=== PATIENT | female | born 2000 | race African-American/Black ===

== ENCOUNTER 2020-02-29 14:39 | Emergency (ER) | payer MEDICAID ==
[~2020-02-29] VITALS: Ht 165.1 cm; Wt 55.0 kg
[2020-02-29 14:42] VITALS: BP 117/56
[2020-02-29] MEDS ORDERED: IBUPROFEN 600MG TABLET PO ONE (16:45)
[2020-02-29] MEDS ORDERED: SODIUM CHLORIDE 0.9% 1,000 ML IV ONE (17:10)
[2020-02-29 17:42] LABS: CHLORIDE 105 mEq/L (98-107)
[2020-02-29 17:47] LABS: PARTIAL THROMBOPLASTIN TIME 29.3 sec (23.4-31.0)
[2020-02-29 17:48] LABS: CLARITY URINE CLEAR (CLEAR); COLOR URINE YELLOW (YELLOW); KETONES URINE NEGATIVE (NEGATIVE); LEUKOCYTE ESTERASE URINE NEGATIVE (NEGATIVE); NITRITE URINE NEGATIVE (NEGATIVE); OCCULT BLOOD URINE NEGATIVE (NEGATIVE); PH URINE 7.5 (4.5-8.0); PROTEIN URINE NEGATIVE (NEGATIVE); SPECIFIC GRAVITY URINE 1.016 (1.005-1.030); UROBILINOGEN URINE 0.2 E.U./dL (0.2-1.0)
[2020-02-29 17:49] LABS: HCG SCREEN NEGATIVE
== END 2020-02-29 19:59 | disposition home or self-care (01) ==
LOC: ER 14:39
DX: S22.018A Other fracture of first thoracic vertebra, initial encounter for closed fracture (principal); V49.19XA Passenger injured in collision with other motor vehicles in nontraffic accident, initial encounter; Y93.89 Activity, other specified; Y92.89 Other specified places as the place of occurrence of the external cause
CPT/HCPCS: 36415; 71045; 72040; 72125; 72128; 72131; 80053; 81003; 81025; 84703; 85610; 85730; 99285; J7030

== ENCOUNTER 2020-06-06 14:36 | Emergency (ER) | payer MEDICAID ==
[~2020-06-06] VITALS: Ht 154.9 cm; Wt 58.0 kg
[2020-06-06] MEDS ORDERED: AMOXICILLIN/POTASSIUM CLAVULANATE 875/125MG TAB PO ONE (15:30)
[2020-06-06] MEDS ORDERED: TETANUS, DIPHTHERIA, PERTUSSIS VAC/PF 0.5ML (>7YR OLD) IM ONE (16:00)
[2020-06-06 16:16] VITALS: BP 110/78
== END 2020-06-06 16:16 | disposition home or self-care (01) ==
LOC: ER 14:53
DX: S61.251A Open bite of left index finger without damage to nail, initial encounter (principal); W55.01XA Bitten by cat, initial encounter; Y93.89 Activity, other specified; Y92.480 Sidewalk as the place of occurrence of the external cause; Z23 Encounter for immunization
CPT/HCPCS: 73140; 90471; 90715; 99283

== ENCOUNTER 2021-01-13 20:25 | Emergency (ER) | payer MEDICAID ==
[~2021-01-13] VITALS: Ht 154.9 cm; Wt 50.0 kg
[2021-01-13] MEDS ORDERED: ONDANSETRON HCL 4MG/2ML INJ IV STA (21:59)
[2021-01-13] MEDS ORDERED: PANTOPRAZOLE SODIUM 40 MG/VIAL IV STA (21:59)
[2021-01-13] MEDS ORDERED: SODIUM CHLORIDE 0.9% 1,000 ML IV ONE (22:00)
[2021-01-13 22:53] LABS: BASOPHILS % 0.2 % (0.0-2.0); EOSINOPHILS % 0.1 % (0.0-5.0); HEMATOCRIT. 32.9 % (36.0-48.0); HEMOGLOBIN. 10.6 g/dL (12.0-16.0); LYMPHOCYTES % 14.1 % (20.0-50.0); MEAN CORPUSCULAR VOLUME 80.4 fL (81.0-99.0); MEAN PLATELET VOLUME 8.3 fl (7.4-10.4); MONOCYTES % 4.1 % (2.0-8.0); NEUTROPHILS % 81.5 % (40.0-76.0); PLATELET 246 x1000/uL (130-400); RED BLOOD CELL COUNT 4.09 mill/uL (4.2-5.4); RED CELL DISTRIBUTION WIDTH 13.8 % (11.6-14.6)
[2021-01-13 23:00] LABS: CHLORIDE 105 mEq/L (98-107)
[2021-01-13 23:11] LABS: CLARITY URINE CLOUDY (CLEAR); COLOR URINE YELLOW (YELLOW); KETONES URINE 4+ (NEGATIVE); LEUKOCYTE ESTERASE URINE 1+ (NEGATIVE); NITRITE URINE POSITIVE (NEGATIVE); OCCULT BLOOD URINE TRACE (NEGATIVE); PROTEIN URINE 1+ (NEGATIVE); SPECIFIC GRAVITY URINE 1.027 (1.005-1.030)
[2021-01-13 23:24] LABS: B-HCG QUANTITATIVE 160844 mIU/mL (<3)
[2021-01-13 23:25] LABS: *AMPHETAMINES SCREEN URINE NEGATIVE (NEGATIVE); *BARBITURATES SCREEN URINE NEGATIVE (NEGATIVE); *BENZODIAZEPINES SCREEN URINE NEGATIVE (NEGATIVE)
[2021-01-13 23:26] LABS: METHADONE URINE SCREEN NEGATIVE (NEGATIVE); OPIATES URINE SCREEN NEGATIVE (NEGATIVE); PHENCYCLIDINE URINE SCREEN NEGATIVE (NEGATIVE)
[2021-01-13 23:27] LABS: *COCAINE SCREEN URINE NEGATIVE (NEGATIVE)
[2021-01-14 00:04] LABS: CANNABINOID URINE SCREEN PRESUMTIVE POSITIVE (NEGATIVE)
[2021-01-14] MEDS ORDERED: ACETAMINOPHEN 325MG TABLET PO ONE (00:15)
[2021-01-14] MEDS ORDERED: SODIUM CHLORIDE 0.9% 1,000 ML IV ONE (00:30)
[2021-01-14] MEDS ORDERED: ONDA4TAB5 MT (01:37)
[2021-01-14 01:52] VITALS: BP 109/58
== END 2021-01-14 02:05 | disposition home or self-care (01) ==
LOC: ER 20:25
DX: O21.1 Hyperemesis gravidarum with metabolic disturbance (principal); O23.41 Unspecified infection of urinary tract in pregnancy, first trimester; O26.891 Other specified pregnancy related conditions, first trimester; R51.9 Headache, unspecified; Z3A.08 8 weeks gestation of pregnancy
CPT/HCPCS: 36415; 76801; 80053; 80305; 81003; 81025; 83690; 84702; 85025; 86850; 86900; 86901; 93005; 96361; 96374; 96375; 99285; C9113; J2405; J7030

== ENCOUNTER 2021-08-01 18:05 | Observation (INO) | payer MEDICAID ==
[~2021-08-01] VITALS: Ht 154.9 cm; Wt 69.9 kg
[~2021-08-01 18:05] MED LIST: ONDA4TAB5 MT
[2021-08-01] MEDS ORDERED: LACTATED RINGERS 1,000 ML IV SCH (19:00)
[2021-08-01] MEDS ORDERED: PNV1TABL61 MT (22:04)
== END 2021-08-01 23:44 | disposition home or self-care (01) ==
LOC: 8 EST LDRP 18:05
PROVIDERS: ADMIT Obstetrics & Gynecology; ATTEND Obstetrics & Gynecology
DX: O26.853 Spotting complicating pregnancy, third trimester (principal); O62.9 Abnormality of forces of labor, unspecified; Z3A.35 35 weeks gestation of pregnancy
CPT/HCPCS: 59025; 76805; 76818; 96360; 96361; G0378; 99281; J7120

== ENCOUNTER 2021-08-26 14:34 | Inpatient (IN) | payer MEDICAID, OTHER ==
[~2021-08-26] VITALS: Ht 154.9 cm; Wt 73.5 kg
[~2021-08-26 14:34] MED LIST changes: +PNV1TABL61 MT
[2021-08-26] MEDS ORDERED: HYDROXYZINE 25MG TABLET PO NR (18:45)
[2021-08-26 18:46] LABS: CLARITY URINE CLEAR (CLEAR); COLOR URINE YELLOW (YELLOW); KETONES URINE NEGATIVE (NEGATIVE); LEUKOCYTE ESTERASE URINE TRACE (NEGATIVE); NITRITE URINE NEGATIVE (NEGATIVE); OCCULT BLOOD URINE NEGATIVE (NEGATIVE); PROTEIN URINE NEGATIVE (NEGATIVE); SPECIFIC GRAVITY URINE 1.007 (1.005-1.030); UROBILINOGEN URINE 0.2 E.U./dL (0.2-1.0)
[2021-08-26 19:02] LABS: *AMPHETAMINES SCREEN URINE NEGATIVE (NEGATIVE); *BARBITURATES SCREEN URINE NEGATIVE (NEGATIVE); *BENZODIAZEPINES SCREEN URINE NEGATIVE (NEGATIVE)
[2021-08-26 19:04] LABS: *COCAINE SCREEN URINE NEGATIVE (NEGATIVE); CANNABINOID URINE SCREEN NEGATIVE (NEGATIVE); METHADONE URINE SCREEN NEGATIVE (NEGATIVE); OPIATES URINE SCREEN NEGATIVE (NEGATIVE); PHENCYCLIDINE URINE SCREEN NEGATIVE (NEGATIVE)
[2021-08-26] MEDS: LACTATED RINGERS 1,000 ML IV SCH (19:14)
[2021-08-26 19:36] LABS: CHLORIDE 111 mEq/L (98-107)
[2021-08-26 19:38] LABS: BASOPHILS % 0.2 % (0.0-2.0); EOSINOPHILS % 4.7 % (0.0-5.0); HEMATOCRIT. 37.1 % (36.0-48.0); HEMOGLOBIN. 12.5 g/dL (12.0-16.0); LYMPHOCYTES % 17.9 % (20.0-50.0); MEAN CORPUSCULAR HEMOGLOBIN 27.5 pg (28.0-32.0); MEAN CORPUSCULAR VOLUME 81.4 fL (81.0-99.0); MONOCYTES % 6.1 % (2.0-8.0); NEUTROPHILS % 71.1 % (40.0-76.0); PLATELET 200 x1000/uL (130-400); RED BLOOD CELL COUNT 4.56 mill/uL (4.2-5.4); RED CELL DISTRIBUTION WIDTH 13.8 % (11.6-14.6)
[2021-08-26 19:40] LABS: INR 0.9; PARTIAL THROMBOPLASTIN TIME 29.2 sec (23.4-31.0); PROTHROMBIN TIME 9.8 sec (9.6-11.0)
[2021-08-26 20:07] LABS: HEPATITIS B SURFACE ANTIGEN NEGATIVE
[2021-08-27] MEDS: HYDROXYZINE 25MG TABLET PO PRN ×3 (02:01→14:22)
[2021-08-27] MEDS: LACTATED RINGERS 1,000 ML IV SCH ×2 (02:02→18:01)
[2021-08-27] MEDS ORDERED: LIDOCAINE HCL 1% 20ML VIAL (Pyxis) INJ INFIL SCH (08:15)
[2021-08-27] MEDS ORDERED: NALOXONE HCL 0.4 MG/ML 1ML VIAL IM PRN (08:15)
[2021-08-27] MEDS ORDERED: METHYLERGONOVINE MALEATE 0.2 MG/ML IM PRN (08:15)
[2021-08-27] MEDS ORDERED: BUTORPHANOL TARTRATE 2 MG/ML VIAL IV PRN (08:15)
[2021-08-27] MEDS ORDERED: DEXT 5%/LR + PITOCIN 20UNITS/L 1,000 ML IV SCH ×2 (08:15→19:45)
[2021-08-27] MEDS ORDERED: MISOPROSTOL 100MCG TABLET VG PRN (12:30)
[2021-08-27] MEDS ORDERED: MORPHINE SULFATE/PF 1MG/ML 10ML AMP ONE (18:15)
[2021-08-27] MEDS ORDERED: ONDANSETRON HCL 4MG/2ML INJ ONE (19:00)
[2021-08-27] MEDS ORDERED: CEFAZOLIN SODIUM 1000MG/VIAL ONE (19:01)
[2021-08-27] MEDS ORDERED: DEXAMETHASONE 4MG/ML 1ML VIAL ONE (19:01)
[2021-08-27] MEDS ORDERED: KETOROLAC 60MG/2ML VIAL IM ONE (19:02)
[2021-08-27] MEDS ORDERED: EPHEDRINE SULFATE 50MG/ML VIAL ONE (19:02)
[2021-08-27] MEDS ORDERED: PHENYLEPHRINE HCL 10 MG/ML 1ML (IV VIAL) IV ONE (19:04)
[2021-08-27] MEDS ORDERED: DIPHENHYDRAMINE 25MG CAPSULE PO PRN (19:45)
[2021-08-27] MEDS ORDERED: RHO(D) IMMUNE GLOBULIN 300 MCG/SYR IM PRN (19:45)
[2021-08-27] MEDS ORDERED: BISACODYL 10MG SUPP PR PRN (19:45)
[2021-08-27] MEDS ORDERED: IBUPROFEN 400MG TABLET PO PRN (19:45)
[2021-08-27] MEDS ORDERED: KETOROLAC 30MG/ML VIAL IV PRN (19:45)
[2021-08-27 21:00] VITALS: BP 91/57
[2021-08-28] VITALS: BP 90/50
[2021-08-28 06:58] LABS: BASOPHILS % 0.2 % (0.0-2.0); EOSINOPHILS % 0.3 % (0.0-5.0); HEMATOCRIT. 32.8 % (36.0-48.0); HEMOGLOBIN. 10.8 g/dL (12.0-16.0); LYMPHOCYTES % 7.1 % (20.0-50.0); MEAN CORPUSCULAR HEMOGLOBIN 26.6 pg (28.0-32.0); MEAN CORPUSCULAR VOLUME 80.8 fL (81.0-99.0); MEAN PLATELET VOLUME 8.5 fl (7.4-10.4); MONOCYTES % 5.4 % (2.0-8.0); PLATELET 173 x1000/uL (130-400); RED BLOOD CELL COUNT 4.07 mill/uL (4.2-5.4); RED CELL DISTRIBUTION WIDTH 13.9 % (11.6-14.6)
[2021-08-28 07:30] VITALS: BP 108/57
[2021-08-28] MEDS: PRENATAL VIT/FE FUMARATE/FA TABLET PO SCH (10:34)
[2021-08-28] MEDS: IBUPROFEN 800MG TABLET PO PRN ×2 (10:35→18:10)
[2021-08-28] MEDS: FERROUS SULFATE 325MG TABLET PO SCH ×2 (10:35→18:09)
[2021-08-28 16:38] VITALS: BP 94/43
[2021-08-28 20:00] VITALS: BP 106/58
[2021-08-29] MEDS: IBUPROFEN 800MG TABLET PO PRN ×4 (00:13→17:58)
[2021-08-29 00:21] VITALS: BP 110/50
[2021-08-29 04:00] VITALS: BP 111/64
[2021-08-29 07:30] VITALS: BP 101/55
[2021-08-29 09:40] LABS: BASOPHILS % 0.1 % (0.0-2.0); EOSINOPHILS % 2.7 % (0.0-5.0); HEMATOCRIT. 33.4 % (36.0-48.0); HEMOGLOBIN. 11.1 g/dL (12.0-16.0); LYMPHOCYTES % 17.3 % (20.0-50.0); MEAN CORPUSCULAR HEMOGLOBIN 27.1 pg (28.0-32.0); MEAN CORPUSCULAR VOLUME 81.7 fL (81.0-99.0); MEAN PLATELET VOLUME 8.4 fl (7.4-10.4); MONOCYTES % 7.1 % (2.0-8.0); NEUTROPHILS % 72.8 % (40.0-76.0); PLATELET 181 x1000/uL (130-400); RED BLOOD CELL COUNT 4.09 mill/uL (4.2-5.4); RED CELL DISTRIBUTION WIDTH 13.5 % (11.6-14.6)
[2021-08-29] MEDS: PRENATAL VIT/FE FUMARATE/FA TABLET PO SCH (11:58)
[2021-08-29] MEDS: FERROUS SULFATE 325MG TABLET PO SCH (11:59)
[2021-08-29 15:11] VITALS: BP 107/54
[2021-08-29 20:00] VITALS: BP 109/61
[2021-08-30] MEDS: IBUPROFEN 800MG TABLET PO PRN ×2 (00:27→07:03)
[2021-08-30 04:00] VITALS: BP 107/65
[2021-08-30] MEDS: FERROUS SULFATE 325MG TABLET PO SCH (07:30)
[2021-08-30 08:29] VITALS: BP 100/57
[2021-08-30] MEDS: PRENATAL VIT/FE FUMARATE/FA TABLET PO SCH (08:39)
== END 2021-08-30 12:00 | disposition home or self-care (01) | DRG 540 ==
LOC: 8 EST LDRP 14:34 → OBSVTOIN 14:34 → 8 EST LDRP 17:47 → 8EST 08-27 22:44
PROVIDERS: ADMIT Obstetrics & Gynecology; ATTEND Obstetrics & Gynecology
PROC: 10D00Z1 Extraction of Products of Conception, Low, Open Approach (ICD-10-PCS; principal; 2021-08-27)
DX: O36.63X0 Maternal care for excessive fetal growth, third trimester, not applicable or unspecified (principal); O99.13 Other diseases of the blood and blood-forming organs and certain disorders involving the immune mechanism complicating the puerperium; O69.81X0 Labor and delivery complicated by cord around neck, without compression, not applicable or unspecified; Z37.0 Single live birth; L29.9 Pruritus, unspecified; D72.829 Elevated white blood cell count, unspecified; O99.72 Diseases of the skin and subcutaneous tissue complicating childbirth; Z20.822 Contact with and (suspected) exposure to COVID-19; Z3A.40 40 weeks gestation of pregnancy
CPT/HCPCS: 36415; 76805; 76818; 80053; 80305; 81003; 82239; 85025; 86592; 86703; 86762; 86850; 86900; 87340; 87426; 88307; 96360; 96361; 99281; G0378; J0690; J1100; J1885; J2274; J2370; J2405; J2590; J3490